=== PATIENT | female | born 1965 | race Caucasian/White ===

== ENCOUNTER → 2019-03-26 | Outpatient (CLI) | payer BC ==
[~2019-03-26] MED LIST: IOPAMIDOL 370 MG/ML 200 ML INFUS..BTL INJ ONE; METOPROLOL TARTRATE INJ 1 MG/ML VIAL ONE; NITROGLYCERIN 0.4 MG SUBL ONE; SODIUM CHLORIDE 0.9% 100 ML 100 ML ONE
--- NOTE | 2019-03-27 16:36 | Diagnostic Imaging Report ---
EXAM: CALCIUM SCORE AND CORONARY CTA INDICATION: ^[id number] ^1020 ^CHEST PAIN COMPARISON: None. TECHNIQUE: Multi-detector CT technology was employed (64 MDCT Upfront Chromatography). Minimal slice thickness with retrospective gating was performed following the intravenous administration of contrast material. The patient was premedicated with 2.5 mg i.v. metoprolol and 0.4 mg sublingual nitroglycerin for heart rate control and coronary dilation, respectively. IV CONTRAST: 100 mL of Isovue-370 ORAL CONTRAST: None COMPLICATIONS: None RADIATION DOSE: Total DLP: 1377.9 mGy*cm Estimated effective dose: (DLP x 0.015 x size factor) mSv CTDIvol has been reviewed. It is below the limits set by the Radiation Protocol Committee (RPC). For optimization of anatomic evaluation, multiplanar reconstruction, maximum intensity projections, and advanced 3-D off-line postprocessing were performed on a dedicated stand-alone workstation under the direct supervision of the interpreting physician. QUALITY: Suboptimal due to poor contrast echocardiogram related severe motion artifact, especially in the mid RCA and proximal LAD. FINDINGS: CALCIUM SCORE: The observed Agatston Calcium Score of 1.12 is at percentile between 50 and 75% for subjects of the same age and gender who are free of clinical cardiovascular disease and treated diabetes. The Agatston score for each vessel is as follows: LM: 1.12 LAD: 0 LCx: 0 RCA: 0 DISTRIBUTION OF THE CALCIFIED PLAQUES: Minimal calcification at the distal left main/origin of the LAD. CORONARY ANATOMY: There is normal origin of the coronary arteries. Left Main Coronary Artery: The left main is normal sized vessel that trifurcates into the LAD, small ramus intermedius, and circumflex. Minimal calcified plaque in the distal segment involving the ostium of the LAD. Otherwise, no evidence of atherosclerotic changes with stenotic disease. Left Anterior Descending Coronary Artery: The LAD is a normal size vessel that wraps around the apex. It gives rise to 2 acute diagonal branches. Motion artifact difficult evaluation of the LAD. There appears to be a circumferential soft tissue plaque involving the ostium of the LAD and a small ramus intermedius on multiple facial reconstructions. The degree of stenosis cannot be evaluated due to motion. Mid and distal segments are patent without significant disease on limited evaluation. Left Circumflex Coronary Artery: The LCX is a normal size vessel, which is non-dominant. It gives rise to 2 obtuse marginal branches. There is no evidence of atherosclerotic changes or stenotic disease. Ramus Intermedius: Small vessel that appears to have a soft tissue plaque, which also involves the ostium of the LAD. This can not be graded due to motion artifact and lumen less than 3 mm. Right Coronary Artery: The RCA is a normal size vessel, which is dominant. It gives rise to a conus branch, AV jose branch, and 2 acute marginal branches. In its distal segment it bifurcates into the PDA and PV branch. The mid RCA is nondiagnostic. There is no evidence of atherosclerotic changes or stenotic disease in the remaining segments. CARDIAC MORPHOLOGY AND FUNCTION: The right and left atria and ventricles are morphologically normal. LIMITED CHEST: Limited views of the visualized chest show no abnormality within chest wall and mediastinum. No mediastinal lymphadenopathy. Linear scarring in the left lower lobe. The visualized portions of the ascending and descending thoracic aorta are of normal size. Small hiatal hernia. LIMITED ABDOMEN: Partially visualized postsurgical changes in the stomach. BONES: No acute osseous abnormalities. IMPRESSION: 1. Total Agatston Calcium Score: 1.12 that corresponds to percentile between 50 and 75%, representing minimal calcified plaque. 2. Normal coronary anatomy. 3. Suboptimal evaluation of the coronary arteries due to unexpected tachycardia after contrast administration resulting in severe motion artifact. - There appears to be a circumferential soft tissue plaque involving the ostium of the LAD and a small ramus intermedius which is difficult to assess for degree of stenosis. Given patient's symptoms, consider stress perfusion for further evaluation or interventional angiogram if high clinical concern for coronary artery disease. - The remaining coronary arteries appear patent on limited evaluation. CAD-ANITHA: N Reference: [email or web address] Signed by: Dr. Thu Fall M.D. on 03/27/2019 4:33 PM
== END ==
LOC: CT 08:13
PROVIDERS: ATTEND Internal Medicine Cardiovascular Disease
DX: R07.9 Chest pain, unspecified (principal); R06.2 Wheezing
CPT/HCPCS: 75574; Q9967

== ENCOUNTER → 2019-04-17 | Day surgery (SDC) | payer BC ==
[2019-04-16 12:27] LABS: BASOPHILS # (AUTO) 0.1 (0.0-0.1); BASOPHILS % 0.6 % (0.0-1.0); EOSINOPHILS # (AUTO) 0.3 (0.0-0.4); EOSINOPHILS % 3.3 % (0.0-6.0); HEMATOCRIT 37.4 % (34.2-44.1); HEMOGLOBIN 12.6 g/dL (12.0-16.0); LYMPHOCYTES % 46.6 % (18.0-39.1); MEAN CORPUSCULAR HEMOGLOBIN 30.6 pg (28-32); MEAN CORPUSCULAR HGB CONC 33.7 g/dL (31-35); MEAN CORPUSCULAR VOLUME 90.8 fL (81-99); MONOCYTES # (AUTO) 0.5 (0.2-0.8); MONOCYTES % 5.8 % (4.4-11.3); NEUTROPHILS # (AUTO) 3.7 (2.1-6.9); NEUTROPHILS % 43.5 % (38.7-80.0); PLATELET COUNT 271 x10e3/uL (140-360); RED BLOOD COUNT 4.12 x10e6/uL (3.6-5.1)
[2019-04-16 12:55] LABS: INR 0.87; PROTHROMBIN TIME 12.3 seconds (11.9-14.5)
[2019-04-16 13:04] LABS: ALANINE AMINOTRANSFERASE 15 IU/L (0-55); ALBUMIN 4.1 g/dL (3.5-5.0); ALBUMIN/GLOBULIN RATIO 1.2 (0.8-2.0); ALKALINE PHOSPHATASE 131 IU/L (40-150); ANION GAP 15.8 mmol/L (8-16); BLOOD UREA NITROGEN 13 mg/dL (7-26); BUN/CREATININE RATIO 18 (6-25); CARBON DIOXIDE 24 mmol/L (22-29); CHLORIDE 104 mmol/L (98-107); CREATININE, SERUM 0.74 mg/dL (0.57-1.11); EST GLOMERULAR FILTRATION RATE > 60 ML/MIN (60-); GLUCOSE 82 mg/dL (74-118); POTASSIUM 3.8 mmol/L (3.5-5.1); SODIUM 140 mmol/L (136-145)
[~2019-04-17] VITALS: Ht 162.6 cm; Wt 79.4 kg
[~2019-04-17] MED LIST changes: +ALPRAZOLAM 0.5 MG TAB ONE; +ALPRAZOLAM0.5 MG PO; +ATORVASTATIN CA20 MG PO; +BUPROPION HCL100 MG PO; +DIPHENHYDRAMINE HCL 25 MG CAP ONE; +FENTANYL CITRATE/PF 100MCG/2 ML INJ ONE; +HEPARIN SOD (PORCINE) 1000 UNIT/ML 30ML ONE; +HEPARIN SOD/SOD CHLORIDE 2,000 ML ONE; +LAMOTRIGINE100 MG PO; +LIDOCAINE HCL 2% LOCAL 20 ML VIAL ONE; -METOPROLOL TARTRATE INJ 1 MG/ML VIAL ONE; +MIDAZOLAM HCL 2 MG/2 ML VIAL ONE; -NITROGLYCERIN 0.4 MG SUBL ONE; +NITROGLYCERIN/D5W 200 MCG/ML 250 ML ONE; +OMEPRAZOLE40 MG PO; +PROAIR HFA INH8.5 GM INH; +RANITIDINE HCL150 MG PO; -SODIUM CHLORIDE 0.9% 100 ML 100 ML ONE; +SODIUM CHLORIDE 0.9% 1000ML 1,000 ML ONE; +VERAPAMIL HCL 2.5 MG/ML 2 ML VIAL ONE; +ZOLPIDEM TARTRA10 MG PO
--- OUTSIDE RECORDS SUMMARY | 2019-04-17 13:26 | XMS REPORT ---
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 Allergies, Adverse Reactions, Alerts This patient has no known allergies or adverse reactions. Medications This patient has no known medications. Results Test Description Test Time Test Comments Text Results Atomic Results Result Comments CTA CORONARY W or WO CALCIUM 2019-03-26 14:38:00 [facility] [address] [place] [address] Patient Name: OMAIRA GARCIA MR #: [id number] : 1965 Age/Sex: 54/F Req #: [id number] Adm Physician: Ordered by: RENZO HERNANDES DO Report #: [id number] Location: CT Room/Bed: Procedure: [id number] CT/CTA CORONARY W or WO CALCIUM Exam Date: 03/26/19 Exam Time: 1020 REPORT STATUS: Signed EXAM: CALCIUM SCORE AND CORONARY CTA IND ICATION: [id number] 1020 CHEST PAIN COMPARISON: None. TECHNIQUE: Multi-detector CT technology was employed (64 MDCT [employer]). Minimal slice thickness with retrospective gating was performed following the intravenous administration of contrast material. The patient was premedicated with 2.5 mg i.v. metoprolol and 0.4 mg sublingual nitroglycerin for heart rate control and coronary dilation, respectively. IV CONTRAST: 100 mL of Isovue-370 ORAL CONTRAST: None COMPLICATIONS: None RADIATION DOSE: Total DLP: 1377.9 mGy*cm Estimated effective dose: (DLP x 0.015 x size factor) mSv CTDIvol has been reviewed. It is below the limits set by the Radiation Protocol Committee (RPC). For optimization of anatomic evaluation, multiplanar reconstruction, maximum intensity projections, and advanced 3-D off-line postprocessing were performed on a dedicated stand-alone workstation under the direct supervision of the interpreting physician. QUALITY: Suboptimal due to poor contrast echocardiogram related severe motion artifact, especially in the mid RCA and proximal LAD. FINDINGS: CALCIUM SCORE: The observed Agatston Calcium Score of 1.12 is at percentile between 50 and 75% for subjects of the same age and gender who are free of clinical cardiovascular disease and treated diabetes. The Agatston score for each vessel is as follows: LM: 1.12 LAD: 0 LCx: 0 RCA: 0 DISTRIBUTION OF THE CALCIFIED PLAQUES: Minimal calcification at the distal left main/origin of the LAD. CORONARY ANATOMY: There is normal origin of the coronary arteries. Left Main Coronary Artery: The left main is normal sized vessel that trifurcates into the LAD, small ramus intermedius, and circumflex. Minimal calcified plaque in the distal segment involving the ostium of the LAD. Otherwise, no evidence of atherosclerotic changes with stenotic disease. Left Anterior Descending Coronary Artery: The LAD is a normal size vessel that wraps around the apex. It gives rise to 2 acute diagonal branches. Motion artifact difficult evaluation of the LAD. There appears to be a circumferential soft tissue plaque involving the ostium of the LAD and a small ramus intermedius on multiple facial reconstructions. The degree of stenosis cannot be evaluated due to motion. Mid and distal segments are patent without significant disease on limited evaluation. Left Circumflex Coronary Artery: The LCX is a normal size vessel, which is non-dominant. It gives rise to 2 obtuse marginal branches. There is no evidence of atherosclerotic changes or stenotic disease. Ramus Intermedius: Small vessel that appears to have a soft tissue plaque, which also involves the ostium of the LAD. This can not be graded due to motion artifact and lumen less than 3 mm. Right Coronary Artery: The RCA is a normal size vessel, which is dominant. It gives rise to a conus branch, AV jose branch, and 2 acute marginal branches. In its distal segment it bifurcates into the PDA and PV branch. The mid RCA is nondiagnostic. There is no evidence of atherosclerotic changes or stenotic disease in the remaining segments. CARDIAC MORPHOLOGY AND FUNCTION: The right and left atria and ventricles are morphologically normal. LIMITED CHEST: Limited views of the visualized chest show no abnormality within chest wall and mediastinum. No mediastinal lymphadenopathy. Linear scarring in the left lower lobe. The visualized portions of the ascending and descending thoracic aorta are of normal size. Small hiatal hernia. LIMITED ABDOMEN: Partially visualized postsurgical changes in the stomach. BONES: No acute osseous abnormalities. IMPRESSION: 1. Total Agatston Calcium Score: 1.12 that corresponds to percentile between 50 and 75%, representing minimal calcified plaque. 2. Normal coronary anatomy. 3. Suboptimal evaluation of the coronary arteries due to unexpected tachycardia after contrast administration resulting in severe motion artifact. - There appears to be a circumferential soft tissue plaque involving the ostium of the LAD and a small ramus intermedius which is difficult to assess for degree of stenosis. Given patient's symptoms, consider stress perfusion for further evaluation or interventional angiogram if high clinical concern for coronary artery disease. - The remaining coronary arteries appear patent on limited evaluation. CAD-ANITHA: N Reference: [email or web address] Signed by: Dr. Alicia Bartlett M.D. on 03/27/2019 4:33 PM Dictated By: ALICIA BARTLETT MD [id number] Transcribed By: SONY on 03/27/19 0013 COPY TO: RENZO HERNANDES DO
[2019-04-17 17:38] VITALS: BP 107/61
--- NOTE | 2019-04-17 17:39 | NUR ---
1739AM Received pt in #10 [facility] Dr Vaughn. [facility] clear arteries no fix. Rt TR band approach Back to baseline orientation. Ox4. at bedside Reviewed POC and has copies of dc papers aware of importance of f/o care. Left iv site w/o s/s infiltration #22 infusing kvo rate Denies necessity to defecate or urinate. Assisted with po intake tolerating snack tray well. Ok to reduce air in TR band at 1800pm Bilateral PPx4 DP/PD. Deies CP or SOB. 1800pm TR band air removal started. Neuro vascular function intact.No gross issues pain pallor pressure or dysrhythmia. No oozing or hematoma 1830 TR band completion NO gross issues pain pallor pressure or dysrhythmia. Rt TR band site w/o hematoma. No oozing [id number] and Tegaderm with Coban and arm splint in place. Positive neuro vascular function, Pt dressed has copies of dc papers. Escorted to car per [facility] employee. Denies CP or SOB knows importance of f/o care. 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 No gross issues pain palllor pressue or dysrhythmia.
[2019-04-17 17:45] VITALS: BP 106/71
[2019-04-17 18:00] VITALS: BP 112/62
[2019-04-17 18:15] VITALS: BP 104/62
[2019-04-17 18:30] VITALS: BP_SYST 104; BP_SYST 106; BP_DIAS 64; BP_DIAS 77
--- NOTE | 2019-04-18 00:14 | Operative Report ---
DATE OF PROCEDURE: 04/17/2019 SURGEON: Jett Vaughn DO PROCEDURES PERFORMED: 1. Conscious sedation, 26 minutes. 2. Selective coronary angiography x2. 3. Left heart catheterization. PREPROCEDURE DIAGNOSIS: Chest pain with abnormal CT angiogram of the chest. POSTPROCEDURE DIAGNOSIS: No significant coronary artery disease. ESTIMATED BLOOD LOSS: Less than 10 mL. SPECIMENS REMOVED: None. PROCEDURE IN DETAIL: After informed consent was obtained, the patient was brought to the cardiac catheterization laboratory in a fasting and nonsedated state. Her right wrist was prepped and draped in the usual sterile fashion. A 2% lidocaine was instilled over the right anterior wrist for local anesthesia. Using micropuncture needle, the right radial artery was accessed via modified Seldinger technique and a 6-[place] Slender sheath was placed. Next, diagnostic coronary angiography and left heart catheterization was performed using a TIG catheter. The patient tolerated the procedure well no immediate complications. Hemostasis was achieved via TR band. PROCEDURE FINDINGS: 1. Left main coronary artery is patent without significant disease. 2. Ostial left anterior descending coronary has a minimal 10% stenosis with no significant disease elsewhere in the LAD system. 3. Left circumflex coronary artery provides 3 obtuse marginal vessels with luminal irregularities. 4. Right coronary artery is a dominant vessel provides posterior descending coronary artery with no significant disease. 5. Left ventricular end-diastolic pressure is 15 mmHg with no aortic valve gradient present upon pullback. IMPRESSION: 1. Minimal coronary artery disease. 2. Chest pain. RECOMMENDATIONS: Continue medical management. Jett Vaughn DO BM/MODL /[id number]
== END | disposition home or self-care (01) ==
LOC: CATH LAB 01:13
PROVIDERS: ATTEND Internal Medicine Cardiovascular Disease
DX: I25.10 Atherosclerotic heart disease of native coronary artery without angina pectoris (principal); R93.1 Abnormal findings on diagnostic imaging of heart and coronary circulation; Z01.812 Encounter for preprocedural laboratory examination
CPT/HCPCS: 36415; 80053; 84702; 85025; 85610; 93458; C1769; C1887; J1644; J2001; J2250; J7030; Q9967